=== PATIENT | male | born 1985 | race Caucasian/White ===

== ENCOUNTER 2024-03-06 04:47 | Day surgery (SDC) | payer OTHER ==
[2024-03-01 17:40] VITALS: BMI 30.7
[2024-03-06] MEDS ORDERED: BUPIVACAINE HCL/PF 0.25% (2.5MG/ML) 10 ML VIAL ONE (07:19)
[2024-03-06] MEDS ORDERED: PROPOFOL 20 ML ONE (07:50)
[2024-03-06] MEDS ORDERED: ROCURONIUM BROMIDE 50 MG/5 ML SYRINGE ONE (07:50)
[2024-03-06] MEDS ORDERED: SUCCINYLCHOLINE CHLORIDE 200 MG/10 ML SYRINGE ONE (07:50)
[2024-03-06] MEDS ORDERED: MIDAZOLAM HCL 2 MG/2 ML SINGLE DOSE VIAL ONE (07:50)
[2024-03-06] MEDS ORDERED: ACETAMINOPHEN INJECTION 100 ML ONE (08:04)
[2024-03-06] MEDS: ceFAZolin SODIUM 1 GM VIAL IVPB ONE (08:20)
[2024-03-06] MEDS: BUPIVACAINE HCL/PF 0.25% (2.5MG/ML) 10 ML VIAL IJ ONE (08:35)
[2024-03-06] MEDS ORDERED: oxyCODONE HCL 5 MG TABLET PO PRN (09:27)
[2024-03-06] MEDS ORDERED: ONDANSETRON 4 MG/2 ML VIAL IVPUSH PRN (09:27)
[2024-03-06] MEDS ORDERED: SUGAMMADEX SODIUM 200 MG/2 ML VIAL ONE (09:37)
[2024-03-06 13:00] VITALS: BP 140/82; PULSE 63; RESP 20; TEMP 97.5
== END 2024-03-06 14:31 | disposition home or self-care (01) ==
LOC: JASU-SURG 04:47
PROVIDERS: ATTEND Surgery
PROC: 8E0W4CZ Robotic Assisted Procedure of Trunk Region, Percutaneous Endoscopic Approach (ICD-10-PCS; 2024-03-06)
PROC: 0YU54JZ Supplement Right Inguinal Region with Synthetic Substitute, Percutaneous Endoscopic Approach (ICD-10-PCS; principal; 2024-03-06 08:00)
DX: K40.90 Unilateral inguinal hernia, without obstruction or gangrene, not specified as recurrent (principal)
CPT/HCPCS: 49650; S2900; 86850; 86900; 86901; 94760; C1781; J0131